=== PATIENT | male | born 1985 | race Two or more races ===

== ENCOUNTER 2017-06-09 16:19 | Emergency (ER) | payer SELFPAY ==
[2017-06-09] MEDS ORDERED: HYDROCODONE/ACETAMINOPHEN 5-325 MG TABLET PO ONE (17:57)
[2017-06-09] MEDS ORDERED: IBUPROFEN 800 MG TABLET PO ONE (17:57)
--- NOTE | 2017-06-09 17:58 | ER Document Report ---
ED General - General Chief Complaint: Abdominal Pain Stated Complaint: RIGHT SIDE PAIN, VOMITING Time Seen by Provider: 06/09/17 17:18 Notes: Patient states that over the last several days he has been having pain in the right chest and fevers. Generally not feeling well. Did fall and has hurt the right chest approximately 3 weeks ago.. Does not smoke, or drugs. Occasional alcohol use. No significant family history. TRAVEL OUTSIDE OF THE [place] IN LAST 30 DAYS: No - Related Data Allergies/Adverse Reactions: No Known Allergies Allergy (Unverified 06/09/17 16:20) Past Medical History - General Information source: Patient - Social History Smoking Status: Never Smoker Frequency of alcohol use: Rare Drug Abuse: None Lives with: Alone Family History: Reviewed & Not Pertinent Patient has suicidal ideation: No Patient has homicidal ideation: No - Medical History Medical History: Negative Renal/ Medical History: Denies: Hx Peritoneal Dialysis Review of Systems - Review of Systems Constitutional: Fever. denies: Malaise, Weakness EENT: No symptoms reported Cardiovascular: Chest pain. denies: Heart racing, Orthopnea Respiratory: Cough, Hurts to breathe, Short of breath Gastrointestinal: No symptoms reported Genitourinary: No symptoms reported, Flank pain. denies: Hematuria, Incontinence Musculoskeletal: No symptoms reported Skin: No symptoms reported Hematologic/Lymphatic: No symptoms reported Neurological/Psychological: No symptoms reported Physical Exam - Vital signs Vitals: Temp Pulse Resp BP Pulse Ox 98.6 F 95 22 H 124/83 97 06/09/17 16:32 06/09/17 16:32 06/09/17 16:32 06/09/17 16:32 06/09/17 16:32 Interpretation: Normal - General General appearance: Appears well, Alert - HEENT Head: Normocephalic, Atraumatic Eyes: Normal Pupils: PERRL - Respiratory Respiratory status: No respiratory distress Chest status: Nontender Breath sounds: Normal Chest palpation: Normal - Cardiovascular Rhythm: Regular Heart sounds: Normal auscultation Murmur: No Notes: Mild tenderness to palpation on the right lateral chest. - Abdominal Inspection: Normal Distension: No distension Bowel sounds: Normal Tenderness: Nontender Organomegaly: No organomegaly - Back Back: Normal, Nontender - Extremities General upper extremity: Normal inspection, Nontender, Normal color, Normal ROM , Normal temperature General lower extremity: Normal inspection, Nontender, Normal color, Normal ROM , Normal temperature, Normal weight bearing. No: Sonu's sign - Neurological Neuro grossly intact: Yes Cognition: Normal Orientation: AAOx4 Alvino Coma Scale Eye Opening: Spontaneous Alvino Coma Scale Verbal: Oriented Alvino Coma Scale Motor: Obeys Commands Alvino Coma Scale Total: 15 Speech: Normal Motor strength normal: LUE, RUE, LLE, RLE Sensory: Normal - Psychological Associated symptoms: Normal affect, Normal mood - Skin Skin Temperature: Warm Skin Moisture: Dry Skin Color: Normal Course - Re-evaluation Re-evalutation: 06/09/17 19:22 Chest x-ray is consistent with a right upper lobe pneumonia. This would fit patient's symptoms. Stephenson, Motrin, antibiotics given. Breathing treatment given. Patient is low risk at this time. No active fever. Comfortable with his normal vital signs treating him as an outpatient. Patient is been made aware of his findings on chest x-ray and discussion was had through the use of an electronics engineer. - Vital Signs Vital signs: Temp Pulse Resp BP Pulse Ox 97.9 F 95 16 108/70 95 06/09/17 19:13 06/09/17 19:13 06/09/17 19:13 06/09/17 19:13 06/09/17 19:13 - Laboratory Laboratory results interpreted by me: 06/09/17 18:19 Urine Protein 30 H Urine Blood SMALL H Discharge - Discharge Clinical Impression: Right upper lobe pneumonia Qualifiers: Pneumonia type: due to unspecified organism Qualified Code(s): J18.1 - Lobar pneumonia, unspecified organism Disposition: HOME, SELF-CARE Instructions: Pneumonia ([facility]) Prescriptions: Albuterol Sulfate [Proair Respiclick] 2 puff IH Q4H 7 Days #1 [email or web address] Azithromycin 250 mg PO DAILY 6 Days #6 tablet Ibuprofen [Motrin 800 mg Tablet] 800 mg PO Q8H PRN #30 tab PRN Reason: Forms: Return to Work Print Language: Arabic
--- NOTE | 2017-06-09 18:23 | RADIOLOGY REPORT (SQ) ---
EXAM DESCRIPTION: RIBS RIGHT W/PA CHEST COMPLETED DATE/TIME: 06/09/2017 6:13 pm REASON FOR STUDY: fall, pain COMPARISON: None. TECHNIQUE: Frontal view of the chest and additional views of the right ribs acquired. NUMBER OF VIEWS: Four views LIMITATIONS: None. FINDINGS: FRONTAL CXR: There is opacification in the right upper lobe. RIBS: No displaced rib fractures. No lytic or blastic bony lesions. OTHER: No other significant finding. IMPRESSION: 1. No pneumothorax. No displaced rib fractures. 2. Right upper lobe pneumonia versus contusion. Contusion seems unlikely in the absence of rib frac tures. COMMENT: SITE OF TRAUMA/COMPLAINT MARKED/STAMP COMPLETED: NO. TECHNICAL DOCUMENTATION: JOB ID: [id number] [employer]- All Rights Reserved Reading location - IP/workstation name: [email or web address]
[2017-06-09] MEDS ORDERED: ALBUTEROL SULFATE 0.083% NEB 2.5 MG/3 ML AMPUL NEB ONE (18:37)
[2017-06-09] MEDS ORDERED: AZITHROMYCIN 250 MG TABLET PO ONE (18:37)
[2017-06-09 18:51] LABS: APPEARANCE,URINE CLEAR; COLOR,URINE YELLOW; GLUCOSE, URINE NEGATIVE (NEGATIVE)
[2017-06-09 18:52] LABS: BILIRUBIN,URINE NEGATIVE (NEGATIVE); KETONES,URINE NEGATIVE (NEGATIVE); LEUKOCYTE ESTERASE,URINE NEGATIVE (NEGATIVE); NITRITE,URINE NEGATIVE (NEGATIVE); PROTEIN,URINE 30 mg/dL (NEGATIVE); URINE SPECIFIC GRAVITY 1.034; UROBILINOGEN,URINE NEGATIVE mg/dL (<2.0)
[2017-06-09 19:15] VITALS: BP 108/70
== END 2017-06-09 19:39 | disposition home or self-care (01) ==
LOC: ER 16:19
DX: J18.1 Lobar pneumonia, unspecified organism (principal); R50.9 Fever, unspecified; R07.1 Chest pain on breathing; R05 Cough; R06.02 Shortness of breath
CPT/HCPCS: 81001; 94640; 99284